=== PATIENT | male | born 1965 | race Caucasian/White ===

== ENCOUNTER 2020-07-21 06:47 | Emergency (ER) | payer MEDICAID, SELFPAY ==
--- NOTE | ~2020-07-21 | XR_ITS ---
EXAMINATION: XR WRIST, LEFT CLINICAL INFORMATION: Pain COMPARISON: None TECHNIQUE: Four views of the left wrist. FINDINGS: Bone alignment is normal. No fracture or dislocation is seen. There lucencies suggestive of small cysts seen in the capitate, scaphoid and lunate bones. Joint spaces are normal. Soft tissues are normal. XR/XR wrist LT min 3V IMPRESSION: Probable small cysts in the carpal bones. Otherwise unremarkable exam.
[2020-07-21 07:52] VITALS: BP 138/80; PULSE 66; RESP 18; TEMP 36.3; O2SAT 96; BMI 32.8
--- NOTE | 2020-07-21 08:40 | ED.EXTPRO ---
HPI - Extremity Problem General Chief complaint: Extremity Injury, Upper Stated complaint: L arm numbess Time Seen by Provider: 07/21/20 08:09 Source: patient Mode of arrival: ambulatory Limitations: no limitations History of Present Illness HPI Narrative: 54-year-old man who presents emergency department for evaluation of left forearm, wrist and finger pain. The patient states that he was splitting wood yesterday from 0 900 till 3:00 p.m.. He states that around 1:00 p.m. he felt a popping sensation in his left wrist. He states that he was able to continue to split wood for 2 more hours but then he developed numbness in his left middle and ring finger. He states that the numbness was a pins and needle sensation. He also developed pain in the left wrist and left elbow area. He states that his symptoms got worse. He states that he has a constant, 10/10 pain in his middle and ring finger, left wrist, left forearm extending to the elbow. States that he has weakness in his hand and cannot make a fist. He took ibuprofen and Tylenol and was unable to relieve his pain. He states he was up all night secondary to his pain. Related Data Previous Rx's Medication Instructions Recorded oxycodone 5 mg PO Q4H PRN #14 tab 07/21/20 prednisone 60 mg PO DAILY 7 Days #21 tab 07/21/20 Allergies Allergy/AdvReac Type Severity Reaction Status Date / Time codeine [Codeine] Allergy Unknown HIVES, Unverified 12/11/19 15:14 rash, tightness in chest Review of Systems Review of Systems: Yes all other systems are reviewed and are negative [facility] Past Medical History [facility] Narrative: Patient has a history of hyperlipidemia. He denies tobacco use, he rarely drinks alcohol, he denies drug use. Medical History High cholesterol Surgical History History of hernia surgery Social History Social History Advance Directives: Yes Advance Directives Information Provided: No Advance Directives on File: No Physical Exam Vital Signs: Vital Signs: Last Vital Signs Temp 97.3 F 07/21/20 07:52 Pulse 66 04/28/21 07:52 Resp 18 07/21/20 07:52 BP 138/80 07/21/20 07:52 Pulse Ox 96 07/21/20 07:52 Body Mass Index 32.8 Const: General: cooperative and healthy appearing Nutritional Appearance: well nourished Orientation/consciousness: oriented to person and oriented to place Limitations: no limitations Neuro: General: oriented to person and oriented to place Extrem: Other: Left upper extremity examination: The patient has pain with palpation of the medial elbow, flexor surface of the wrist and over the index and middle finger. The patient has good flexion and extension of his fingers with normal strength. He has limited opponents of the thumb and pinky finger. He can make a normal okay sign with normal strength. The pain in his hand increases with flexion of the wrist. His extremity is neurovascularly intact Course Course Course Narrative: 54-year-old male who presents emergency department for evaluation of left wrist, left elbow and left middle and ring finger pain after chopping wood yesterday. Physical examination revealed his left upper extremity was neurovascularly intact. He does have pain with palpation over the carpal tunnel area and over the medial epicondyle of the left elbow. Patient most likely has a ulnar and medial nerve injury from repetitive motion and I did discuss this with him. X-rays will be obtained. 926 The patient will be placed in a wrist splint. He will be treated with prednisone 60 mg once a day for 7 days, Tylenol 1000 mg every 4-6 hours as needed for pain and oxycodone 5 mg every 4-6 hours for pain not relieved by prednisone and Tylenol . He will need to follow-up with our orthopedic doctor on-call for re-evaluation in 1 week. 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 [place] search was performed. Patient had no prescriptions for controlled substances over a 1 year search range. Discharge Plan Discharge Clinical Impression: Repetitive motion injury Epicondylitis elbow, medial Qualifiers: Laterality: left Qualified Code(s): M77.02 - Medial epicondylitis, left elbow Left wrist sprain Qualifiers: Encounter type: initial encounter Qualified Code(s): S63.502A - Unspecified sprain of left wrist, initial encounter Patient Disposition: Home, Self-Care Instructions: Wrist Sprain (ED) Additional Instructions: Your examination is consistent with repetitive motion injury of the median nerve of the wrist and the ulnar nerve of the elbow. Wear the splint for 1 week. The wrist x-ray revealed no broken bones/fractures but you do have a cyst of a carpal (wrist) bone, you should discuss this with the orthopedic doctor when you follow-up with them. Take prednisone 20 mg pills, 3 pills once a day for 7 days. This is a strong anti-inflammatory pain medication. Do not take any other [id number] anti-inflammatory pain medications such has ibuprofen, Advil, Motrin, Aleve, naproxen. Take Tylenol 500 mg pills, 2 pills every 4-6 hours as needed for pain. For pain not relieved by prednisone and Tylenol take oxycodone 5 mg pills, 1 pill every 4-6 hours as needed for pain. This is a narcotic pain medication and can be addicting. If your concerned about addiction do not get this medication filled. Also you can ask the pharmacist to give you less pills then prescribed if your concerned about addiction. This medication will make you sleepy. Do not drive or work while taking this medication. Follow-up with our on-call orthopedic doctor in 1 week. Please return to the emergency department if your symptoms get worse or if you develop any symptoms that are concerning to you. Prescriptions: New prednisone 20 mg tablet 60 mg PO DAILY 7 Days Qty: 21 RF: 0 oxycodone 5 mg tablet 5 mg PO Q4H PRN (Reason: pain) Qty: 14 RF: 0 Referrals: Lj Brown MD [Physician] - 1 week
== END 2020-07-21 09:35 | disposition home or self-care (01) ==
PROVIDERS: Emergency Provider Emergency Medicine Emergency Medical Services; PCP Internal Medicine
DX: S63.502A Unspecified sprain of left wrist, initial encounter (principal); M77.02 Medial epicondylitis, left elbow; M25.532 Pain in left wrist; X50.3XXA Overexertion from repetitive movements, initial encounter; X50.1XXA Overexertion from prolonged static or awkward postures, initial encounter; Y93.9 Activity, unspecified; Y92.9 Unspecified place or not applicable; Y99.9 Unspecified external cause status
CPT/HCPCS: 73110; 99283